=== PATIENT | male | born 1950 | race Caucasian/White ===

== ENCOUNTER → 2019-12-30 | Emergency (ER) | payer OTHER ==
[~2019-12-30] VITALS: Ht 172.7 cm; Wt 81.6 kg
== END | disposition designated cancer center or children's hospital (05) ==
LOC: ER 17:16
DX: S62.612B Displaced fracture of proximal phalanx of right middle finger, initial encounter for open fracture (principal); X78.8XXA Intentional self-harm by other sharp object, initial encounter; Y93.89 Activity, other specified; Y92.89 Other specified places as the place of occurrence of the external cause; Y99.9 Unspecified external cause status